=== PATIENT | female | born 1970 | race Caucasian/White ===

== ENCOUNTER 2017-07-29 16:35 | Emergency (ER) | payer BC ==
[2017-07-29 17:49] VITALS: O2SAT 99
[2017-07-29 20:18] LABS: SQUAMOUS EPITHIAL 4 /hpf (0-5); URINE BACTERIA RARE (<OCC); URINE BILIRUBIN NEGATIVE (NEGATIVE); URINE BLOOD SMALL (NEGATIVE); URINE CLARITY SLIGHTY-CLOUDY (Clear); URINE COLOR STRAW (YELLOW); URINE GLUCOSE (UA) NEG (Normal); URINE LEUKOCYTE ESTERASE NEG Leu/uL (Negative); URINE PROTEIN NEGATIVE (NEGATIVE); URINE UROBILINOGEN 0.2-1.0 mg/dL (0.2-1.0)
[2017-07-29 20:50] LABS: ALB/GLOB RATIO 1.3 (1.0-2.1); ALBUMIN 4.7 g/dL (3.5-5.0); ALT/SGPT 25 U/L (9-52); AST/SGOT 23 U/L (14-36); BLOOD UREA NITROGEN 5 mg/dl (7-17); CALCIUM 9.1 mg/dL (8.4-10.2); GFR AFRICAN-AMERICAN > 60; GFR NON-AFRICAN AMERICAN > 60
[2017-07-29 20:57] LABS: BASO % 0.4 % (0.0-2.0); EOS % 0.1 % (0.0-4.0); HEMOGLOBIN 8.8 g/dL (12.0-16.0); LYMPH # 1.1 K/uL (1.0-4.3); LYMPH % 9.8 % (20.0-40.0); MEAN CORPUSCULAR HEMOGLOBIN 19.8 pg (27.0-31.0); MEAN CORPUSCULAR HGB CONC 30.5 g/dL (33.0-37.0); MEAN PLATELET VOLUME 8.4 fl (7.2-11.7); MONO # 0.3 K/uL (0.0-0.8); MONO % 2.7 % (0.0-10.0); NEUT # 9.9 K/uL (1.8-7.0); NRBC % 0.1 % (0.0-0.0); PLATELET COUNT 373 K/uL (130-400); RBC 4.45 Mil/uL (3.80-5.20); RED CELL DISTRIBUTION WIDTH 18.5 % (11.5-14.5); WHITE BLOOD COUNT 11.4 K/uL (4.8-10.8)
--- NOTE | 2017-07-29 21:38 | ED PDOC ---
HPI: Female Pain Time Seen by Provider: 07/29/17 19:21 Chief Complaint (Nursing): Female Genitourinary Chief Complaint (Provider): Urinary Retention History Per: Patient History/Exam Limitations: no limitations Onset/Duration Of Symptoms: Hrs (since 6 AM this morning) Current Symptoms Are (Timing): Still Present Additional Complaint(s): 46 y/o [place] female with a history of uterine fibroids and Catalina's presents to the ED for urine retention. Patient states it started at 6 AM this morning when she realized she wasn't able to urinate. Yesterday she could only urinate small amounts throughout the day and visited her PMD who instructed her to come to the ER for further evaluation and catheterization. She complains of sensation of distention in lower abdomen. Denies any fever, nausea, vomiting, diarrhea, cough, or SOB. PMD: none provided Past Medical History Reviewed: Historical Data, Nursing Documentation, Vital Signs Vital Signs: Last Vital Signs Temp 99.2 F 07/29/17 17:47 Pulse 102 H 07/29/17 17:47 Resp 18 07/29/17 17:47 BP 100/70 07/29/17 17:47 Pulse Ox 99 07/29/17 17:47 - Medical History Other PMH: Uterine fibroids and catalina's thyroid disease - Surgical History Surgical History: No Surg Hx - Family History Family History: States: No Known Family Hx - Social History Current smoker - smoking cessation education provided: No Ex-Smoker (has not smoked in the last 12 months): No Alcohol: None Drugs: Denies - Home Medications Home Medications: Ambulatory Orders Medication Instructions Recorded Nitrofurantoin Macrocrystals 100 mg PO BID #14 cap 07/29/17 [Macrobid] - Allergies Allergies/Adverse Reactions: Allergies Allergy/AdvReac Type Severity Reaction Status Date / Time latex Allergy RASH Verified 07/29/17 17:46 Sulfa (Sulfonamide Allergy RASH Verified 07/29/17 17:46 Antibiotics) Review of Systems ROS Statement: Except As Marked, All Systems Reviewed And Found Negative Constitutional: Negative for: Fever Respiratory: Negative for: Cough, Shortness of Breath Gastrointestinal: Positive for: Other (distention in lower abdomen). Negative for: Nausea, Vomiting, Diarrhea Genitourinary Female: Positive for: Other (urinary retention) Physical Exam - Reviewed Nursing Documentation Reviewed: Yes Vital Signs Reviewed: Yes - Physical Exam Appears: Positive for: Non-toxic, Uncomfortable Head Exam: Positive for: ATRAUMATIC, NORMAL INSPECTION, NORMOCEPHALIC Skin: Positive for: Pallor Eye Exam: Positive for: EOMI, Normal appearance, PERRL Cardiovascular/Chest: Positive for: Regular Rate, Rhythm. Negative for: Murmur Respiratory: Positive for: Normal Breath Sounds. Negative for: Respiratory Distress Gastrointestinal/Abdominal: Positive for: Tenderness, Other (suprapubic distention with tenderness) Neurologic/Psych: Positive for: Alert, Oriented (x3) - Laboratory Results Result Diagrams: 07/29/17 20:36 07/29/17 20:36 - ECG O2 Sat by Pulse Oximetry: 99 (RA) Pulse Ox Interpretation: Normal Medical Decision Making Medical Decision Making: Time: 17:47 Impression: 46 y/o female with acute urinary retention Initial Plan: * UDip * Test * CBC * Urine Culture * CMP * CBC * Urinalysis * Pelis Ultrasound * Transvaginal Ultrasound 22:50 Labs show no clinical significant abnormalities except for anemia. Patient was already aware of anemia and stated it is chronic. Urine does not indicate UTI Disposition: Patient drained 1 liter of urine via andres bag and reports improved symptoms. Patient is stable for discharge for leg band. She was referred to gynecology and nephrology for follow up visits. Prescribed Macrobid and indwelling andres catheter. Conditioned has improved. Patient Name: MOISÉS BLAND (Age): 1970 46 Gender: F Date of Exam: 07/29/2017 Referring Physician: Teo Frye # of Images: 37 Ordered As: US PELVIS ULTRASOUND CONFIDENTIALITY STATEMENT This report is intended only for use by the referring physician, and only in accordance with law. If you received this in error, call [phone]. Page 1 of 1 EXAM: US Pelvis Complete, Transabdominal CLINICAL HISTORY: 46 years old, female; Signs and symptoms; Other: Fibroids; Additional info: HX of fibroids TECHNIQUE: Real-time transabdominal pelvic ultrasound (complete) with image documentation. COMPARISON: No relevant prior studies available. FINDINGS: Uterus/cervix: Heterogeneous, lobulated uterus, 12.8 x 10.2 x 9.8 cm in size. Multiple uterine masses, largest measuring 7.9 x 5.3 x 6.6 cm. Endometrium: 0.6 cm in thickness. Right ovary: Not visualized. Left ovary: Not visualized. Free fluid: No significant free fluid. Bladder: Unremarkable as visualized. IMPRESSION: 1. Probable fibroid uterus. Thank you for allowing us to participate in the care of your patient. Dictated and Authenticated by: Yuniel Esparza MD 07/29/2017 9:40 PM Eastern Time ([place] & [place]) DX Acute urinary retention. Fibroids Patient encouraged to f/u with Urology and Gynecology. She has been dcd with leg bag Scribe Attestation: Documented by Jaquan Calvin acting as a scribe for Teo Frye MD. Scribe Attestation: All medical record entries made by the Scribe were at my direction and personally dictated by me. I have reviewed the chart and agree that the record accurately reflects my personal performance of the history, physical exam, medical decision making, and the department course for this patient. I have also personally directed, reviewed, and agree with the discharge instructions and disposition. Disposition - Clinical Impression Clinical Impression: Urinary retention, Fibroid uterus - Disposition Referrals: Kareem Ennis MD [Medical Doctor] - Lucretia Rodriguez MD [Staff Provider] - Disposition Time: 22:50 Condition: IMPROVED Prescriptions: Nitrofurantoin Macrocrystals [Macrobid] 100 mg PO BID #14 cap Instructions: Uterine Fibroids, How to Care for Your Andres Catheter, Female Forms: [employer] (Jordanian)
[2017-07-29 21:40] LABS: EOSINOPHIL 2 % (0-7); LYMPHOCYTE 7 % (20-50); MONOCYTE 3 % (0-10); NEUTROPHIL 87 % (42-75); REACTIVE LYMPHOCYTES 1 % (0-0); TOTAL CELLS COUNTED 100
[2017-07-29 21:41] LABS: ANISOCYTOSIS SLIGHT; POIKILOCYTOSIS SLIGHT; TARGET CELLS SLIGHT
[2017-07-29 21:42] LABS: HYPOCHROMIC MARKED; MICROCYTOSIS SLIGHT; OVALOCYTES SLIGHT; STOMATOCYTES SLIGHT
[2017-07-29 21:43] LABS: POLYCHROMIC SLIGHT; ROULEAUX FORMATION SLIGHT; TEARDROP CELLS SLIGHT
[2017-07-29 21:44] LABS: PLATELET ESTIMATE NORMAL (NORMAL)
[2017-07-29 21:50] LABS: MEAN CELL VOLUME 65.1 fl (81.0-99.0)
[2017-07-30 00:09] VITALS: PULSE 84
[2017-07-30 00:11] VITALS: BP 118/76; RESP 17; TEMP 98.2
== END 2017-07-29 23:01 | disposition home or self-care (01) ==
LOC: H.ER 16:35
DX: R33.9 Retention of urine, unspecified (principal); D25.9 Leiomyoma of uterus, unspecified; D64.9 Anemia, unspecified; E06.3 Autoimmune thyroiditis